=== PATIENT | male | born 1975 | race African-American/Black ===

== ENCOUNTER 2016-07-26 20:39 | Inpatient (IN) | payer OTHER ==
--- NOTE | 2016-07-26 21:09 | PDOC ---
Rapid Medical Evaluation Time Seen by Provider: 07/26/16 20:59 Medical Evaluation: 07/26/16 21:00 Initially called in, outside smoking a cigarette. I have performed a brief in-person evaluation of this patient. o The patient presents with a chief complaint of: " Mental Problems" depression and schizo effective disorder. Feels that he wants to hurt someone but wont. Denies feeling of hurting himself, Want to go to [facility], he called them and they told him that they would have a bed available tomorrow and to come to the ER today. Want to stop using percocet, and cocaine. o Pertinent physical exam findings: Awake and alert. Lungs CLear, RRR s1 s2 audible, o I have ordered the following: EKG, urine tox, cbc, CMP o The patient will proceed to the ED for further evaluation. 07/26/16 21:10
[2016-07-26 21:35] LABS: BASOPHIL 1.4 % (0-2.0); EOSINOPHIL 3.1 % (0-4.5); MCH 30.8 pg (25.7-33.7); MCHC 32.3 g/dl (32.0-35.9); MEAN CELL VOLUME 95.6 fl (80-96); NEUTROPHILS 33.1 % (42.8-82.8); PLATELET COUNT 194 K/MM3 (134-434); RDW 12.9 % (11.9-15.9); WHITE BLOOD COUNT 2.5 K/mm3 (4.0-10.0)
[2016-07-26 22:07] LABS: ALK PHOS 42 U/L (45-117); ANION GAP 7 (8-16); BILIRUBIN,TOTAL 0.5 mg/dL (0.2-1.0); CALCIUM 9.3 mg/dL (8.5-10.1); CO2 30 mmol/L (21-32); COCKROFT - GAULT 111.45; CREATININE 1.3 mg/dL (0.7-1.3); GLUCOSE,RANDOM 80 mg/dL (74-106); SGOT/AST 20 U/L (15-37); SGPT/ALT 23 U/L (12-78)
--- NOTE | 2016-07-26 23:16 | PDOC ---
History of Present Illness - General History Source: Patient Exam Limitations: No Limitations - History of Present Illness Initial Comments: 40 yo M with a PMHx of asthma, bipolar, schizoaffective disorder who presents to the ED seeking detox treatment. Patient states he needs to be medically cleared to attend a rehab center at [facility]. Patient notes his last detox was a few weeks ago at [facility]. Patient is noncompliant with his psych medications. Allergies: NKDA Surgical Hx: inguinal hernia repair Social Hx: Smoker (.5 ppd), ETOH use, cocaine, percocet <Maine Alexander - Last Filed: 07/26/16 23:16> <Yasmeen Brink - Last Filed: 07/31/16 17:37> - General Chief Complaint: Psychiatric Stated Complaint: EVALUATED Time Seen by Provider: 07/26/16 20:59 Past History <Maine Alexander - Last Filed: 07/26/16 23:16> - Past Medical History Asthma: Yes Other medical history: psyszhio affective disorder - Psycho/Social/Smoking Cessation Hx Suicidal Ideation: No Smoking History: Current every day smoker Have you smoked in the past 12 months: Yes Number of Cigarettes Smoked Daily: 10 Information on smoking cessation initiated: No Hx Alcohol Use: No Drug/Substance Use Hx: No <Yasmeen Brink - Last Filed: 07/31/16 17:37> - Past Medical History Allergies/Adverse Reactions: Allergies Allergy/AdvReac Type Severity Reaction Status Date / Time No Known Allergies Allergy Verified 07/26/16 21:07 Home Medications: Ambulatory Orders Albuterol Sulfate Inhaler - [Ventolin HFA Inhaler -] 1 inh IH TID PRN 07/26/16 Folic Acid 1 mg PO DAILY #30 tablet 07/30/16 Thiamine HCl [Vitamin B-1] 100 mg PO DAILY #30 tablet 07/30/16 Albuterol Sulfate Inhaler - [Ventolin HFA Inhaler -] 2 puff IH Q4H PRN #0 inhaler 07/31/16 Risperidone [Risperdal -] 2 mg PO BID tablet 07/31/16 Review of Systems - Review of Systems Able to Perform ROS?: Yes Comments:: CONSTITUTIONAL: Absent: fever, no chills, no fatigue EYES: Absent: visual changes ENT: Absent: ear pain, no sore throat CARDIOVASCULAR: Absent: chest pain, no palpitations RESPIRATORY: Absent: cough, no SOB GI: Absent: abdominal pain, no nausea, no vomiting, no constipation, no diarrhea GENITOURINARY: Absent: dysuria, no frequency, no hematuria MUSKULOSKELETAL: Absent: back pain, no arthralgia, no myalgia SKIN: Absent: rash NEURO: Absent: headache <Maine Alexander - Last Filed: 07/26/16 23:16> *Physical Exam - Vital Signs Last Vital Signs Temp Pulse Resp BP Pulse Ox 97.8 F 78 19 130/68 97 07/26/16 21:03 07/26/16 21:03 07/26/16 21:03 07/26/16 21:03 07/26/16 21:03 - Physical Exam Comments: GENERAL: Well-appearing, well-nourished. No apparent distress. HEENT: Normocephalic, atraumatic. PERRL, EOM intact. CARDIOVASCULAR: Normal S1, S2. Regular rate and rhythm. PULMONARY: Clear to auscultation bilaterally. ABDOMEN: Soft, non-distended, non-tender. EXTREMITIES: Normal ROM in all four extremities. No gross deformities. SKIN: Warm, dry. No rash NEUROLOGICAL: No focal neurological deficits. <Maine Alexander - Last Filed: 07/26/16 23:16> - Vital Signs Last Vital Signs Temp Pulse Resp BP Pulse Ox 97.8 F 78 19 130/68 97 07/26/16 21:03 07/26/16 21:03 07/26/16 21:03 07/26/16 21:03 07/26/16 21:03 <Yasmeen Brink - Last Filed: 07/31/16 17:37> ED Treatment Course - LABORATORY CBC & Chemistry Diagram: 07/26/16 20:44 07/26/16 20:44 - ADDITIONAL ORDERS Additional order review: Laboratory Results 07/26/16 20:44 Sodium 143 Potassium 4.0 Chloride 106 Carbon Dioxide 30 Anion Gap 7 L BUN 12 Creatinine 1.3 Creat Clearance w eGFR > 60 Random Glucose 80 Calcium 9.3 Total Bilirubin 0.5 AST 20 ALT 23 Alkaline Phosphatase 42 L Total Protein 7.0 Albumin 4.0 07/26/16 20:44 RBC 4.17 MCV 95.6 MCHC 32.3 RDW 12.9 MPV 9.0 Neutrophils % 33.1 L Lymphocytes % 45.3 H Monocytes % 17.1 H Eosinophils % 3.1 Basophils % 1.4 <Maine Alexander - Last Filed: 07/26/16 23:16> - LABORATORY CBC & Chemistry Diagram: 07/30/16 10:45 07/28/16 06:00 - ADDITIONAL ORDERS Additional order review: Laboratory Results 07/26/16 20:44 Sodium 143 Potassium 4.0 Chloride 106 Carbon Dioxide 30 Anion Gap 7 L BUN 12 Creatinine 1.3 Creat Clearance w eGFR > 60 Random Glucose 80 Calcium 9.3 Total Bilirubin 0.5 AST 20 ALT 23 Alkaline Phosphatase 42 L Total Protein 7.0 Albumin 4.0 07/26/16 20:44 RBC 4.17 MCV 95.6 MCHC 32.3 RDW 12.9 MPV 9.0 Neutrophils % 33.1 L Lymphocytes % 45.3 H Monocytes % 17.1 H Eosinophils % 3.1 Basophils % 1.4 <Yasmeen Brink - Last Filed: 07/31/16 17:37> *DC/Admit/Observation/Transfer - Attestations Scribe Attestion: Documentation prepared by Maine Alexander, acting as medical laboratory scientist for Yasmeen Brink MD/DO. <Maine Alexander - Last Filed: 07/26/16 23:16> <Yasmeen Brink - Last Filed: 07/31/16 17:37> Diagnosis at time of Disposition: Substance abuse, Neutropenia - Discharge Dispostion Condition at time of disposition: Improved - Prescriptions
[2016-07-27 02:37] LABS: URINE APPEARANCE CLEAR; URINE BILIRUBIN NEGATIVE (NEGATIVE); URINE BLOOD NEGATIVE (NEGATIVE); URINE COLOR AMBER; URINE GLUCOSE (UA) NEGATIVE (NEGATIVE); URINE KETONE NEGATIVE (NEGATIVE); URINE LEUK ESTERASE NEGATIVE (NEGATIVE); URINE NITRITE NEGATIVE (NEGATIVE); URINE PROTEIN NEGATIVE (NEGATIVE); URINE UROBILINOGEN 2.0 E.U/dl E.U./dl (0.2-1.0)
[2016-07-27 03:06] LABS: URINE MARIJUANA THC POSITIVE ng/ml (CUTOFF=50)
--- NOTE | 2016-07-27 08:50 | PDOC ---
*Physical Exam - Vital Signs Last Vital Signs Temp Pulse Resp BP Pulse Ox 97.8 F 78 19 130/68 97 07/26/16 21:03 07/26/16 21:03 07/26/16 21:03 07/26/16 21:03 07/26/16 21:03 <Jarvis Ruiz - Last Filed: 07/27/16 09:51> - Vital Signs Last Vital Signs Temp Pulse Resp BP Pulse Ox 97.8 F 78 19 130/68 97 07/26/16 21:03 07/26/16 21:03 07/26/16 21:03 07/26/16 21:03 07/26/16 21:03 <Oliverio Newsome - Last Filed: 07/27/16 10:51> ED Treatment Course - LABORATORY CBC & Chemistry Diagram: 07/26/16 20:44 07/26/16 20:44 - ADDITIONAL ORDERS Additional order review: Laboratory Results 07/27/16 07/27/16 07/26/16 02:25 02:25 20:44 Sodium 143 Potassium 4.0 Chloride 106 Carbon Dioxide 30 Anion Gap 7 L BUN 12 Creatinine 1.3 Creat Clearance w eGFR > 60 Random Glucose 80 Calcium 9.3 Total Bilirubin 0.5 AST 20 ALT 23 Alkaline Phosphatase 42 L Total Protein 7.0 Albumin 4.0 Urine Color Leelee Urine Appearance Clear Urine pH 6.0 Urine Protein Negative Urine Glucose (UA) Negative Urine Ketones Negative Urine Blood Negative Urine Nitrite Negative Urine Bilirubin Negative Urine Urobilinogen 2.0 e.u/dl Ur Leukocyte Esterase Negative Opiates Screen Negative Methadone Screen Negative Barbiturate Screen Negative Phencyclidine Screen Negative Ur Amphetamines Screen Negative MDMA (Ecstasy) Screen Negative Benzodiazepines Screen Positive Cocaine Screen Positive U Marijuana (THC) Screen Positive 07/26/16 20:44 RBC 4.17 MCV 95.6 MCHC 32.3 RDW 12.9 MPV 9.0 Neutrophils % 33.1 L Lymphocytes % 45.3 H Monocytes % 17.1 H Eosinophils % 3.1 Basophils % 1.4 <Jarvis Ruiz - Last Filed: 07/27/16 09:51> - LABORATORY CBC & Chemistry Diagram: 07/26/16 20:44 07/26/16 20:44 - ADDITIONAL ORDERS Additional order review: Laboratory Results 07/27/16 07/27/16 07/26/16 02:25 02:25 20:44 Sodium 143 Potassium 4.0 Chloride 106 Carbon Dioxide 30 Anion Gap 7 L BUN 12 Creatinine 1.3 Creat Clearance w eGFR > 60 Random Glucose 80 Calcium 9.3 Total Bilirubin 0.5 AST 20 ALT 23 Alkaline Phosphatase 42 L Total Protein 7.0 Albumin 4.0 Urine Color Leelee Urine Appearance Clear Urine pH 6.0 Urine Protein Negative Urine Glucose (UA) Negative Urine Ketones Negative Urine Blood Negative Urine Nitrite Negative Urine Bilirubin Negative Urine Urobilinogen 2.0 e.u/dl Ur Leukocyte Esterase Negative Opiates Screen Negative Methadone Screen Negative Barbiturate Screen Negative Phencyclidine Screen Negative Ur Amphetamines Screen Negative MDMA (Ecstasy) Screen Negative Benzodiazepines Screen Positive Cocaine Screen Positive U Marijuana (THC) Screen Positive 07/26/16 20:44 RBC 4.17 MCV 95.6 MCHC 32.3 RDW 12.9 MPV 9.0 Neutrophils % 33.1 L Lymphocytes % 45.3 H Monocytes % 17.1 H Eosinophils % 3.1 Basophils % 1.4 <Oliverio Newsome - Last Filed: 07/27/16 10:51> Medical Decision Making - Medical Decision Making 07/27/16 07:24 Call made to [facility] [phone], awaiting call back. 07/27/16 08:13 Call made to [facility] [phone], awaiting call back. 07/27/16 08:32 Call made to [facility] [phone], awaiting call back. 07/27/16 08:51 Call made to , awaiting call back. 07/27/16 09:29 Call made to [facility] [phone], was advised will call back. 07/27/16 09:41 Text sent to , awaiting reply. <Jarvis Ruiz - Last Filed: 07/27/16 09:51> - Medical Decision Making 07/27/16 10:49 Sign-out received from outgoing Emergency Physician Dr. Ruano Pt interviewed and examined Ancillary studies reviewed Case discussed in detail with oncoming Emergency Physician including history, physical exam and ancillary studies. CBC, BMP 07/26/16 20:44 07/26/16 20:44 Pt noted to be neutropenic with ANC ~800. However, patient has no symptoms. Case discussed with ID physician Dr. Red. Recommends obtaining holder cultures and neutropenia isolation and observation. Case discussed with case management. They will assist in case management in regards to Rehab Case discussed with Dr. Morgan (psychiatry). He is aware of the case. Case discussed in detail with admitting physician including history, physical exam and ancillary studies. Admitting physician has assumed care for the patient, will follow all pending diagnostics and will complete the evaluation and treatment. <Oliverio Newsome - Last Filed: 07/27/16 10:51> *DC/Admit/Observation/Transfer <Jarvis Ruiz - Last Filed: 07/27/16 09:51> - Discharge Dispostion Admit: Yes <Oliverio Newsome - Last Filed: 07/27/16 10:51> Diagnosis at time of Disposition: Substance abuse Neutropenia Qualifiers: Neutropenia type: unspecified Qualified Code(s): D70.9 - Neutropenia, unspecified - Discharge Dispostion Condition at time of disposition: Good
--- NOTE | 2016-07-27 10:48 | HP ---
CHIEF COMPLAINT: "I want to go to detox." PCP: HISTORY OF PRESENT ILLNESS: This is a 40 yo man with PMH asthma, pancreatitis, schizoaffective and bipolar d/o (self d/c'd medications ~1 year ago) and polysubstance abuse who presents for medical clearance for [facility] facility. Medical w/u revealed WBC 2500 and ANC 828. He denies fevers, chills or infectious symptoms. Last ETOH and cocaine on 07/26 in the AM prior to presentation to ED. Currently no beds available at [facility]. ER course was notable for: (1) WBC 2500 with ANC 828 (2) Utox positive for THC, cocaine and benzos Recent Travel: denies PAST MEDICAL HISTORY: see HPI PAST SURGICAL HISTORY: denies Social History: Smoking: current 0.5 pack daily smoker with 7 pack years Alcohol: daily 4 beers and 1 pint Drugs: 1gram cocaine daily, daily Percocet Family History: non-contributory Allergies No Known Allergies Allergy (Verified 07/26/16 21:07) HOME MEDICATIONS: Home Medications 3 Medication Instructions Recorded Albuterol Sulfate Inhaler - 1 inh IH TID PRN 07/26/16 [Ventolin HFA Inhaler -] REVIEW OF SYSTEMS CONSTITUTIONAL: Absent: fever, chills, diaphoresis, generalized weakness, malaise, loss of appetite, weight change HEENT: Absent: rhinorrhea, nasal congestion, throat pain, throat swelling, difficulty swallowing, mouth swelling, ear pain, eye pain, visual changes CARDIOVASCULAR: Absent: chest pain, syncope, palpitations, irregular heart rate, lightheadedness , peripheral edema RESPIRATORY: Absent: cough, shortness of breath, dyspnea with exertion, orthopnea, wheezing, stridor, hemoptysis GASTROINTESTINAL: Absent: abdominal pain, abdominal distension, nausea, vomiting, diarrhea, constipation, melena, hematochezia GENITOURINARY: Absent: dysuria, frequency, urgency, hesitancy, hematuria, flank pain, genital pain MUSCULOSKELETAL: Absent: myalgia, arthralgia, joint swelling, back pain, neck pain SKIN: Absent: rash, itching, pallor HEMATOLOGIC/IMMUNOLOGIC: Absent: easy bleeding, easy bruising, lymphadenopathy, frequent infections ENDOCRINE: Absent: unexplained weight gain, unexplained weight loss, heat intolerance, cold intolerance NEUROLOGIC: Absent: headache, focal weakness or paresthesias, dizziness, unsteady gait, seizure, mental status changes, bladder or bowel incontinence PSYCHIATRIC: Absent: anxiety, depression, suicidal, hallucinations. Patient expresses wish to do "bad things" to unspecified "people" PHYSICAL EXAMINATION Vital Signs - 24 hr 3 07/26/16 07/27/16 21:03 07:40 Temperature 97.8 F 97.8 F Pulse Rate 78 Pulse Rate [ 62 Apical] Respiratory 19 16 Rate Blood Pressure 130/68 Blood Pressure 104/53 [Left Arm] O2 Sat by Pulse 97 100 Oximetry (%) GENERAL: Awake, alert, and fully oriented, in no acute distress. HEAD: Normal with no signs of trauma. EYES: Pupils equal, round and reactive to light, extraocular movements intact, sclera anicteric, conjunctiva clear. No lid lag. EARS, NOSE, THROAT: Ears normal, nares patent, oropharynx clear without exudates. Moist mucous membranes. NECK: Normal range of motion, supple without lymphadenopathy, JVD, or masses. LUNGS: Breath sounds equal, clear to auscultation bilaterally. No wheezes, and no crackles. No accessory muscle use. HEART: Regular rate and rhythm, normal S1 and S2 without murmur, rub or gallop. ABDOMEN: Soft, nontender, not distended, normoactive bowel sounds, no guarding, no rebound, no masses. No hepatomegaly or splenomegaly. MUSCULOSKELETAL: Normal range of motion at all joints. No bony deformities or tenderness. No CVA tenderness. UPPER EXTREMITIES: 2+ pulses, warm, well-perfused. No cyanosis. No clubbing. No peripheral edema. LOWER EXTREMITIES: 2+ pulses, warm, well-perfused. No calf tenderness. No peripheral edema. NEUROLOGICAL: Cranial nerves II-XII intact. Normal speech. Normal gait. Tremulous with extended hands. No tongue fasciculation noted. PSYCHIATRIC: Cooperative. Good eye contact. Appropriate mood and affect. SKIN: Warm, dry, normal turgor, no rashes or lesions noted, normal capillary refill. Laboratory Results - last 24 hr 3 07/26/16 07/26/16 07/27/16 20:44 20:44 02:25 WBC 2.5 L RBC 4.17 Hgb 12.9 Hct 39.8 MCV 95.6 MCHC 32.3 RDW 12.9 Plt Count 194 MPV 9.0 Neutrophils % 33.1 L Lymphocytes % 45.3 H Monocytes % 17.1 H Eosinophils % 3.1 Basophils % 1.4 Sodium 143 Potassium 4.0 Chloride 106 Carbon Dioxide 30 Anion Gap 7 L BUN 12 Creatinine 1.3 Creat Clearance w eGFR > 60 Random Glucose 80 Calcium 9.3 Total Bilirubin 0.5 AST 20 ALT 23 Alkaline Phosphatase 42 L Total Protein 7.0 Albumin 4.0 Urine Color Leelee Urine Appearance Clear Urine pH 6.0 Urine Protein Negative Urine Glucose (UA) Negative Urine Ketones Negative Urine Blood Negative Urine Nitrite Negative Urine Bilirubin Negative Urine Urobilinogen 2.0 e.u/dl Ur Leukocyte Esterase Negative Opiates Screen Methadone Screen Barbiturate Screen Phencyclidine Screen Ur Amphetamines Screen MDMA (Ecstasy) Screen Benzodiazepines Screen Cocaine Screen U Marijuana (THC) Screen 3 07/27/16 02:25 WBC RBC Hgb Hct MCV MCHC RDW Plt Count MPV Neutrophils % Lymphocytes % Monocytes % Eosinophils % Basophils % Sodium Potassium Chloride Carbon Dioxide Anion Gap BUN Creatinine Creat Clearance w eGFR Random Glucose Calcium Total Bilirubin AST ALT Alkaline Phosphatase Total Protein Albumin Urine Color Urine Appearance Urine pH Urine Protein Urine Glucose (UA) Urine Ketones Urine Blood Urine Nitrite Urine Bilirubin Urine Urobilinogen Ur Leukocyte Esterase Opiates Screen Negative Methadone Screen Negative Barbiturate Screen Negative Phencyclidine Screen Negative Ur Amphetamines Screen Negative MDMA (Ecstasy) Screen Negative Benzodiazepines Screen Positive Cocaine Screen Positive U Marijuana (THC) Screen Positive ASSESSMENT/PLAN: A: 40 yo man with uncomplicated withdrawal and neutropenia. Currently no infectious symptoms. ANC currently 475. CIWA-5. P: 1. Neutropenia NCI risk category- 4 - trend WBC's - closely monitor temperature - blood and urine cx pending - low threshold for abx therapy - ID Bobde consult 2. ETOH withdrawal - Librium taper - Serial CIWA - Douglas consult - Detox when neutropenia resolves 3. Schizoaffective d/o - [place] following 4. Bipolar d/o - [place] following 5. Asthma - well controlled Dispo- requires observation for acute medical condition. transfer to detox when neutropenia resolves Code Status- FULL CODE Visit type - Emergency Visit Emergency Visit: Yes Care time: The patient presented to the Emergency Department on the above date and was hospitalized for further evaluation of their emergent condition. - New Patient This patient is new to me today: Yes Date on this admission: 07/27/16 - Critical Care Critical Care patient: No
[2016-07-27 11:25] LABS: BASOPHIL 1.3 % (0-2.0); EOSINOPHIL 6.1 % (0-4.5); MCH 31.7 pg (25.7-33.7); MCHC 33.3 g/dl (32.0-35.9); MEAN CELL VOLUME 95.1 fl (80-96); MEAN PLT VOLUME 9.1 fl (7.5-11.1); PLATELET COUNT 174 K/MM3 (134-434); RDW 12.5 % (11.9-15.9); WHITE BLOOD COUNT 2.5 K/mm3 (4.0-10.0)
[2016-07-27] MEDS ORDERED: chlordiazePOXIDE HCL 25 MG CAPSULE PO PRN (13:40)
[2016-07-27] MEDS ORDERED: chlordiazePOXIDE HCL 25 MG CAPSULE PO ONE (13:41)
[2016-07-27] MEDS ORDERED: chlordiazePOXIDE HCL 25 MG CAPSULE ONE ×2 (15:12→17:56)
--- NOTE | 2016-07-27 17:20 | CONSULT ---
Consult Consult Specialty:: infectious diseases Reason for Consultation:: neutropenia - History of Present Illness History of Present Illness: This is a 40 yo man with PMH asthma, pancreatitis, schizoaffective and bipolar d /o and polysubstance abuse who presents for medical clearance for [facility] facility. Patient on admission was found to have drugs in the system as from utox. Also when the patient was worked up found to ahve low platelets and low wbc count patient denies any fever or any other symptoms . Last ETOH and cocaine on 07/26 in the AM prior to presentation to ED. currently sleepy but otherwise looks stable - History Source History Provided By: Medical Record Limitations to Obtaining History: Clinical Condition - Alcohol/Substance Use Hx Alcohol Use: No - Smoking History Smoking history: Current every day smoker Have you smoked in the past 12 months: Yes Aproximately how many cigarettes per day: 10 Home Medications - Allergies Allergies/Adverse Reactions: Allergies Allergy/AdvReac Type Severity Reaction Status Date / Time No Known Allergies Allergy Verified 07/26/16 21:07 - Home Medications Home Medications: Ambulatory Orders Albuterol Sulfate Inhaler - [Ventolin HFA Inhaler -] 1 inh IH TID PRN 07/26/16 Review of Systems - Review of Systems Constitutional: reports: No Symptoms Eyes: reports: No Symptoms HENT: reports: No Symptoms Neck: reports: No Symptoms Cardiovascular: reports: No Symptoms Respiratory: reports: No Symptoms Gastrointestinal: reports: No Symptoms Genitourinary: reports: No Symptoms Integumentary: reports: No Symptoms Neurological: reports: No Symptoms Endocrine: reports: No Symptoms Hematology/Lymphatic: reports: No Symptoms Psychiatric: reports: No Symptoms Physical Exam Vital Signs: Vital Signs Temperature 98.1 F 07/27/16 15:57 Pulse Rate 64 07/27/16 15:57 Respiratory Rate 20 07/27/16 15:57 Blood Pressure 107/48 07/27/16 15:57 O2 Sat by Pulse Oximetry (%) 94 L 07/27/16 15:57 Constitutional: Yes: No Distress, Calm Eyes: Yes: Conjunctiva Clear Cardiovascular: Yes: Regular Rate and Rhythm Respiratory: Yes: Regular, CTA Bilaterally Gastrointestinal: Yes: Normal Bowel Sounds, Soft Musculoskeletal: Yes: WNL Extremities: Yes: WNL Neurological: Yes: Alert Psychiatric: Yes: Alert Labs: CBC, BMP 07/27/16 11:09 Assessment/Plan 1. Neutropenia 2. ETOH withdrawal 3. Schizoaffective 4. Bipolar d/o 5. Asthma plan no abx at this time patient stable if continues to remain stable patient can be txed
[2016-07-27] MEDS: chlordiazePOXIDE HCL 25 MG CAPSULE PO SCH ×2 (17:55→22:36)
[2016-07-28 00:56] VITALS: BMI 29.2
[2016-07-28] MEDS: chlordiazePOXIDE HCL 25 MG CAPSULE PO SCH ×4 (06:18→23:17)
[2016-07-28 07:32] LABS: MCH 31.7 pg (25.7-33.7); MCHC 33.4 g/dl (32.0-35.9); MEAN PLT VOLUME 9.5 fl (7.5-11.1); PLATELET COUNT 171 K/MM3 (134-434); RDW 12.5 % (11.9-15.9); WHITE BLOOD COUNT 2.5 K/mm3 (4.0-10.0)
[2016-07-28 07:54] LABS: CALCIUM 8.4 mg/dL (8.5-10.1); COCKROFT - GAULT 151.57
[2016-07-28 08:22] LABS: PLATELET ESTIMATE ADEQUATE (NORMAL)
--- NOTE | 2016-07-28 12:40 | EKG ---
Test Reason : Blood Pressure : / mmHG Vent. Rate : 068 BPM Atrial Rate : 068 BPM P-R Int : 152 ms QRS Dur : 100 ms QT Int : 392 ms P-R-T Axes : 033 022 026 degrees QTc Int : 416 ms SINUS RHYTHM WITH PREMATURE ATRIAL COMPLEXES WITH ABERRANT CONDUCTION OTHERWISE NORMAL ECG NO PREVIOUS ECGS AVAILABLE Confirmed by SUNNY NAVA, ATTILA ([id number]) on 07/28/2016 12:39:41 PM Referred By: HEATHER Confirmed By:ATTILA CORREA MD
--- NOTE | 2016-07-28 13:32 | PN ---
Progress Note, Physician History of Present Illness: stable continues to be afebrile - Current Medication List Current Medications: Active Medications Chlordiazepoxide HCl (Librium -) 25 mg PO Q4H PRN PRN Reason: WITHDRAWAL(CONT SUBST) Stop: 07/30/16 13:39 Chlordiazepoxide HCl (Librium -) 25 mg PO [id number] BYRON Stop: 07/29/16 11:01 Chlordiazepoxide HCl (Librium -) 15 mg PO [id number] BYRON Stop: 07/30/16 11:01 - Objective Vital Signs: Vital Signs Temperature 97.4 F L 07/28/16 11:00 Pulse Rate 61 07/28/16 11:00 Respiratory Rate 16 07/28/16 11:00 Blood Pressure 121/63 07/28/16 11:00 O2 Sat by Pulse Oximetry (%) 100 07/27/16 17:51 Constitutional: Yes: No Distress, Calm Cardiovascular: Yes: Regular Rate and Rhythm Respiratory: Yes: Regular, CTA Bilaterally Gastrointestinal: Yes: Normal Bowel Sounds, Soft Musculoskeletal: Yes: WNL Extremities: Yes: WNL Neurological: Yes: Alert, Oriented Assessment/Plan 1. Neutropenia 2. ETOH withdrawal 3. Schizoaffective 4. Bipolar d/o 5. Asthma plan no abx at this time patient stable if continues to remain stable by tomorrow i think the drugs will be out of his system patient stable to be txed continues to be afebrile and stable
--- NOTE | 2016-07-28 13:59 | PN ---
Progress Note (short form) - Note Progress Note: Subjective: the patient was seen and examined at the bedside, he has tremors on extension. He is eating lunch and states he would like to be left alone. Current Medications Generic Name Dose Route Start Last Admin Trade Name Freq PRN Reason Stop Dose Admin Chlordiazepoxide HCl 25 mg 07/27/16 13:40 Librium - PO 07/30/16 13:39 Q4H PRN WITHDRAWAL(CONT SUBST) Chlordiazepoxide HCl 25 mg 07/28/16 17:00 Librium - PO 07/29/16 11:01 [id number] BYRON Chlordiazepoxide HCl 15 mg 07/29/16 17:00 Librium - PO 07/30/16 11:01 [id number] BYRON Objective: Vital Signs Period Temp Pulse Resp BP Sys/Galeana Pulse Ox Last 24 Hr 97.4 F-98.1 F 60-71 10-20 107-135/48-76 94-100 Physical Exam: Patient refused CBCD WBC 2.5 K/mm3 (4.0-10.0) L 07/28/16 06:00 RBC 3.93 M/mm3 (4.00-5.60) L 07/28/16 06:00 Hgb 12.5 GM/dL (11.7-16.9) 07/28/16 06:00 Hct 37.4 % (35.4-49) 07/28/16 06:00 MCV 95.0 fl (80-96) 07/28/16 06:00 MCHC 33.4 g/dl (32.0-35.9) 07/28/16 06:00 RDW 12.5 % (11.9-15.9) 07/28/16 06:00 Plt Count 171 K/MM3 (134-434) 07/28/16 06:00 MPV 9.5 fl (7.5-11.1) 07/28/16 06:00 CMP Sodium 142 mmol/L (136-145) 07/28/16 06:00 Potassium 4.1 mmol/L (3.5-5.1) 07/28/16 06:00 Chloride 106 mmol/L (98-107) 07/28/16 06:00 Carbon Dioxide 28 mmol/L (21-32) 07/28/16 06:00 Anion Gap 8 (8-16) 07/28/16 06:00 BUN 14 mg/dL (7-18) 07/28/16 06:00 Creatinine 1.0 mg/dL (0.7-1.3) D 07/28/16 06:00 Creat Clearance w eGFR > 60 (>60) 07/26/16 20:44 Random Glucose 90 mg/dL (74-106) 07/28/16 06:00 Calcium 8.4 mg/dL (8.5-10.1) L 07/28/16 06:00 Total Bilirubin 0.5 mg/dL (0.2-1.0) 07/26/16 20:44 AST 20 U/L (15-37) 07/26/16 20:44 ALT 23 U/L (12-78) 07/26/16 20:44 Alkaline Phosphatase 42 U/L (45-117) L 07/26/16 20:44 Total Protein 7.0 g/dl (6.4-8.2) 07/26/16 20:44 Albumin 4.0 g/dl (3.4-5.0) 07/26/16 20:44 Microbiology 07/27/16 11:09 Blood - Peripheral Venous Blood Culture - Preliminary NO GROWTH OBTAINED AFTER 24 HOURS, INCUBATION TO CONTINUE FOR 4 DAYS. 07/27/16 11:05 Blood - Peripheral Venous Blood Culture - Preliminary NO GROWTH OBTAINED AFTER 24 HOURS, INCUBATION TO CONTINUE FOR 4 DAYS. Assessment: this is a 40 year old male with PMHx of asthma, schizoaffective disorder, asthma, ETOH use who presented to the ED seeking detox treatment Plan: 1) ID: Neutropenia - ANC 325 today - No current infectious symptoms - UA negative - Blood cultures with NGTD - Continue to observe off abx - Appreciate ID consult 2) Psych: ETOH abuse - Continue Librium taper - F/u detox consult Schizoaffective disorder, bipolar disorder - Not on home medications - F/u psych consult 3) Pulmonary: Asthma - Well controlled - Albuterol prn 4) F/E/N: - Neutropenic diet - Monitor electrolytes 5) Prophylaxis: - Lovenox 40mg sq daily - OOB ambulating 6) Dispo: - Requires continued inpatient care CODE STATUS: FULL CODE Visit type - Emergency Visit Emergency Visit: Yes ED Registration Date: 07/28/16 Care time: The patient presented to the Emergency Department on the above date and was hospitalized for further evaluation of their emergent condition. - New Patient This patient is new to me today: Yes Date on this admission: 07/28/16 - Critical Care Critical Care patient: No
[2016-07-28] MEDS ORDERED: ALBUTEROL SO4 6.7 GM HFA INHALER IH PRN (14:04)
[2016-07-29] MEDS: chlordiazePOXIDE HCL 25 MG CAPSULE PO SCH ×2 (05:59→11:15)
[2016-07-29 06:59] LABS: BASOPHIL 1.2 % (0-2.0); EOSINOPHIL 5.8 % (0-4.5); MCH 31.4 pg (25.7-33.7); MCHC 33.1 g/dl (32.0-35.9); MEAN CELL VOLUME 94.9 fl (80-96); MEAN PLT VOLUME 9.8 fl (7.5-11.1); NEUTROPHILS 22.4 % (42.8-82.8); PLATELET COUNT 205 K/MM3 (134-434); RDW 12.7 % (11.9-15.9); WHITE BLOOD COUNT 2.6 K/mm3 (4.0-10.0)
--- NOTE | 2016-07-29 08:32 | CONSULT ---
Consult Detox [facility] Reason for Current Admission/Consult: Alcohol detox Referred by:: Rey Kumar NP - History History of Present Illness: 40 y/o man was first seen by me while in the ED on 07/27/26.At that time he was very drowsy and unable to give hx. He's currently on the librium detox protocol and tolerating it well. Pt. denies previous detox,his alcohol use started as a teenager. - History Source History Provided By: Patient, Medical Record - Alcohol/Substance Use Hx Alcohol Use: No - Current Drug/Alcohol Use Alcohol Route: Oral Frequency: Daily Amount used: Cognac 1 pint, Beer < 1(6apck) Age of first use: 16 Date of Last Use: 07/26/16 - Significant Medical Findings: Laboratory Last Values WBC 2.6 K/mm3 (4.0-10.0) L 07/29/16 05:35 RBC 4.04 M/mm3 (4.00-5.60) 07/29/16 05:35 Hgb 12.7 GM/dL (11.7-16.9) 07/29/16 05:35 Hct 38.4 % (35.4-49) 07/29/16 05:35 MCV 94.9 fl (80-96) 07/29/16 05:35 MCHC 33.1 g/dl (32.0-35.9) 07/29/16 05:35 RDW 12.7 % (11.9-15.9) 07/29/16 05:35 Plt Count 205 K/MM3 (134-434) 07/29/16 05:35 MPV 9.8 fl (7.5-11.1) 07/29/16 05:35 Neutrophils % 22.4 % (42.8-82.8) L D 07/29/16 05:35 Lymphocytes % 57.9 % (8-40) H 07/29/16 05:35 Monocytes % 12.7 % (3.8-10.2) H 07/29/16 05:35 Eosinophils % 5.8 % (0-4.5) H 07/29/16 05:35 Basophils % 1.2 % (0-2.0) 07/29/16 05:35 Differential Comment Manual diff done 07/28/16 06:00 Reactive Lymphocytes 2 % (0-80) 07/28/16 06:00 Platelet Estimate Adequate (NORMAL) 07/28/16 06:00 Sodium 142 mmol/L (136-145) 07/28/16 06:00 Potassium 4.1 mmol/L (3.5-5.1) 07/28/16 06:00 Chloride 106 mmol/L (98-107) 07/28/16 06:00 Carbon Dioxide 28 mmol/L (21-32) 07/28/16 06:00 Anion Gap 8 (8-16) 07/28/16 06:00 BUN 14 mg/dL (7-18) 07/28/16 06:00 Creatinine 1.0 mg/dL (0.7-1.3) D 07/28/16 06:00 Creat Clearance w eGFR > 60 (>60) 07/26/16 20:44 Random Glucose 90 mg/dL (74-106) 07/28/16 06:00 Calcium 8.4 mg/dL (8.5-10.1) L 07/28/16 06:00 Total Bilirubin 0.5 mg/dL (0.2-1.0) 07/26/16 20:44 AST 20 U/L (15-37) 07/26/16 20:44 ALT 23 U/L (12-78) 07/26/16 20:44 Alkaline Phosphatase 42 U/L (45-117) L 07/26/16 20:44 Total Protein 7.0 g/dl (6.4-8.2) 07/26/16 20:44 Albumin 4.0 g/dl (3.4-5.0) 07/26/16 20:44 Urine Color Leelee 07/27/16 02:25 Urine Appearance Clear 07/27/16 02:25 Urine pH 6.0 (5.0-8.0) 07/27/16 02:25 Ur Specific [place] 1.020 (1.005-1.025) 07/27/16 02:25 Urine Protein Negative (NEGATIVE) 07/27/16 02:25 Urine Glucose (UA) Negative (NEGATIVE) 07/27/16 02:25 Urine Ketones Negative (NEGATIVE) 07/27/16 02:25 Urine Blood Negative (NEGATIVE) 07/27/16 02:25 Urine Nitrite Negative (NEGATIVE) 07/27/16 02:25 Urine Bilirubin Negative (NEGATIVE) 07/27/16 02:25 Urine Urobilinogen 2.0 e.u/dl E.U./dl (0.2-1.0) 07/27/16 02:25 Ur Leukocyte Esterase Negative (NEGATIVE) 07/27/16 02:25 Opiates Screen Negative ng/ml (FHYIFW=042) 07/27/16 02:25 Methadone Screen Negative ng/ml (RXZOWF=247) 07/27/16 02:25 Barbiturate Screen Negative ng/ml (GDMKCP=229) 07/27/16 02:25 Phencyclidine Screen Negative ng/ml (CUTOFF=25) 07/27/16 02:25 Ur Amphetamines Screen Negative ng/ml (RRAQCJ=264) 07/27/16 02:25 MDMA (Ecstasy) Screen Negative ng/ml (WIHBSJ=782) 07/27/16 02:25 Benzodiazepines Screen Positive ng/ml (XBVOCC=724) 07/27/16 02:25 Cocaine Screen Positive ng/ml (UWHVZG=860) 07/27/16 02:25 U Marijuana (THC) Screen Positive ng/ml (CUTOFF=50) 07/27/16 02:25 labs noted CIWA Score - CIWA Score Nausea/Vomitin-No Nausea/No Vomiting Muscle Tremors: 3 Anxiety: 3 Agitation: 2 Paroxysmal Sweats: 2 Orientation: 0-Oriented Tacttile Disturbances: 0-None Auditory Disturbances: 0-None Visual Disturbances: 0-None Headache: 0-None Present CIWA-Ar Total Score: 10 Assessment Plan - Diagnosis (1) Alcohol dependence with uncomplicated withdrawal Status: Acute (2) Cocaine dependence, uncomplicated Status: Acute - Plan Plan: Complete detox and refer to [facility] rehab - Medication Detox Regimen/Protocol: Edmar
[2016-07-29] MEDS: ENOXAPARIN NA (PORCINE) 40 MG/0.4 ML DISP.SYRIN SQ SCH (11:15)
--- NOTE | 2016-07-29 13:18 | PN ---
Progress Note, Physician History of Present Illness: eating lunch does not ant to be examined clinically looks very good no issues detox note noted - Current Medication List Current Medications: Active Medications Albuterol Sulfate (Ventolin Hfa Inhaler -) 2 puff IH Q4H PRN PRN Reason: SHORT OF BREATH/WHEEZING Chlordiazepoxide HCl (Librium -) 25 mg PO Q4H PRN PRN Reason: WITHDRAWAL(CONT SUBST) Stop: 07/30/16 13:39 Chlordiazepoxide HCl (Librium -) 15 mg PO [id number] BYRON Stop: 07/30/16 11:01 Enoxaparin Sodium (Lovenox -) 40 mg SQ DAILY BYRON Last Admin: 07/29/16 11:15 Dose: Not Given - Objective Vital Signs: Vital Signs Temperature 97.7 F 07/29/16 06:00 Pulse Rate 20 L 07/29/16 06:00 Respiratory Rate 20 07/29/16 06:00 Blood Pressure 131/57 07/29/16 06:00 O2 Sat by Pulse Oximetry (%) 95 07/29/16 10:00 Labs: CBC, BMP 07/29/16 05:35 Assessment/Plan 1. Neutropenia 2. ETOH withdrawal 3. Schizoaffective 4. Bipolar d/o 5. Asthma - Diagnosis (1) Alcohol dependence with uncomplicated withdrawal Status: Acute (2) Cocaine dependence, uncomplicated Status: Acute plan no abx at this time patient stable continue as per detox plan can go to rehab
--- NOTE | 2016-07-29 14:10 | PN ---
Progress Note (short form) - Note Progress Note: Subjective: the patient was seen and examined at the bedside, he denies any issues Current Medications Generic Name Dose Route Start Last Admin Trade Name Freq PRN Reason Stop Dose Admin Albuterol Sulfate 2 puff 07/28/16 14:04 Ventolin Hfa Inhaler - IH Q4H PRN SHORT OF BREATH/WHEEZING Chlordiazepoxide HCl 25 mg 07/27/16 13:40 Librium - PO 07/30/16 13:39 Q4H PRN WITHDRAWAL(CONT SUBST) Chlordiazepoxide HCl 15 mg 07/29/16 17:00 Librium - PO 07/30/16 11:01 [id number] BYRON Enoxaparin Sodium 40 mg 07/29/16 10:00 07/29/16 11:15 Lovenox - SQ Not Given DAILY BYRON Objective: Vital Signs Period Temp Pulse Resp BP Sys/Galeana Pulse Ox Last 24 Hr 97.7 F-98.7 F 20-66 18-20 110-132/56-80 95-95 Physical Exam: Patient refused CBCD WBC 2.6 K/mm3 (4.0-10.0) L 07/29/16 05:35 RBC 4.04 M/mm3 (4.00-5.60) 07/29/16 05:35 Hgb 12.7 GM/dL (11.7-16.9) 07/29/16 05:35 Hct 38.4 % (35.4-49) 07/29/16 05:35 MCV 94.9 fl (80-96) 07/29/16 05:35 MCHC 33.1 g/dl (32.0-35.9) 07/29/16 05:35 RDW 12.7 % (11.9-15.9) 07/29/16 05:35 Plt Count 205 K/MM3 (134-434) 07/29/16 05:35 MPV 9.8 fl (7.5-11.1) 07/29/16 05:35 CMP Sodium 142 mmol/L (136-145) 07/28/16 06:00 Potassium 4.1 mmol/L (3.5-5.1) 07/28/16 06:00 Chloride 106 mmol/L (98-107) 07/28/16 06:00 Carbon Dioxide 28 mmol/L (21-32) 07/28/16 06:00 Anion Gap 8 (8-16) 07/28/16 06:00 BUN 14 mg/dL (7-18) 07/28/16 06:00 Creatinine 1.0 mg/dL (0.7-1.3) D 07/28/16 06:00 Creat Clearance w eGFR > 60 (>60) 07/26/16 20:44 Random Glucose 90 mg/dL (74-106) 07/28/16 06:00 Calcium 8.4 mg/dL (8.5-10.1) L 07/28/16 06:00 Total Bilirubin 0.5 mg/dL (0.2-1.0) 07/26/16 20:44 AST 20 U/L (15-37) 07/26/16 20:44 ALT 23 U/L (12-78) 07/26/16 20:44 Alkaline Phosphatase 42 U/L (45-117) L 07/26/16 20:44 Total Protein 7.0 g/dl (6.4-8.2) 07/26/16 20:44 Albumin 4.0 g/dl (3.4-5.0) 07/26/16 20:44 Microbiology 07/27/16 11:09 Blood - Peripheral Venous Blood Culture - Preliminary NO GROWTH OBTAINED AFTER 24 HOURS, INCUBATION TO CONTINUE FOR 4 DAYS. 07/27/16 11:05 Blood - Peripheral Venous Blood Culture - Preliminary NO GROWTH OBTAINED AFTER 24 HOURS, INCUBATION TO CONTINUE FOR 4 DAYS. Assessment: this is a 40 year old male with PMHx of asthma, schizoaffective disorder, asthma, ETOH use who presented to the ED seeking detox treatment Plan: 1) ID: Neutropenia - Infectious vs. benign ethnic neutropenia vs. drug induced - No current infectious symptoms - UA negative - Blood cultures with NGTD - Continue to observe off abx - Appreciate ID consult 2) Psych: ETOH abuse - Continue Librium taper - Appreciate detox consult Schizoaffective disorder, bipolar disorder - Not on home medications - F/u psych consult 3) Pulmonary: Asthma - Well controlled - Albuterol prn 4) F/E/N: - Neutropenic diet - Monitor electrolytes 5) Prophylaxis: - Lovenox 40mg sq daily - OOB ambulating 6) Dispo: - Can be discharged to [facility] tomorrow after last dose of Librium, discussed with case management CODE STATUS: FULL CODE
[2016-07-29] MEDS: chlordiazePOXIDE 5 MG CAPSULE PO SCH ×2 (18:10→23:40)
[2016-07-30] MEDS: chlordiazePOXIDE 5 MG CAPSULE PO SCH ×2 (05:57→11:34)
--- NOTE | 2016-07-30 07:41 | DS ---
Physical Examination Vital Signs: Vital Signs Temperature 98.3 F 07/30/16 05:49 Pulse Rate 58 L 07/30/16 05:49 Respiratory Rate 18 07/30/16 05:49 Blood Pressure 119/55 07/30/16 05:49 O2 Sat by Pulse Oximetry (%) 99 07/29/16 22:00 Labs: CBC, BMP 07/29/16 05:35 Discharge Summary Reason For Visit: SUBSTANCE ABUSE,NEUTROPENIA Current Active Problems Alcohol dependence with uncomplicated withdrawal (Acute) Cocaine dependence, uncomplicated (Acute) Neutropenia (Acute) Substance abuse (Acute) Condition: Improved - Instructions Diet, Activity, Other Instructions: Please return to the ED with new, persistent, or worsening symptoms. Please follow-up with you primary care provider as specified. Referrals: River Munguia MD [Staff Physician] - (Please follow-up with your primary care provider within 1 week. Please have your complete blood count checked ( blood work) at that time to assess what your absolute neutraphil count is.) Disposition: HOME - Home Medications Comprehensive Discharge Medication List: Ambulatory Orders Albuterol Sulfate Inhaler - [Ventolin HFA Inhaler -] 1 inh IH TID PRN 07/26/16 Folic Acid 1 mg PO DAILY #30 tablet 07/30/16 Thiamine HCl [Vitamin B-1] 100 mg PO DAILY #30 tablet 07/30/16
--- NOTE | 2016-07-30 10:13 | PN ---
Progress Note (short form) - Note Progress Note: Subjective: the patient was seen and examined at the bedside, he reports having a bowel movement with bright red blood this AM (he did not show anyone the stool ). He reports this happened two years ago and that he was diagnosed with pancreatitis at that time. He denies any abdominal pain, nausea, vomiting. Current Medications Generic Name Dose Route Start Last Admin Trade Name Freq PRN Reason Stop Dose Admin Albuterol Sulfate 2 puff 07/28/16 14:04 Ventolin Hfa Inhaler - IH Q4H PRN SHORT OF BREATH/WHEEZING Chlordiazepoxide HCl 25 mg 07/27/16 13:40 Librium - PO 07/30/16 13:39 Q4H PRN WITHDRAWAL(CONT SUBST) Chlordiazepoxide HCl 15 mg 07/29/16 17:00 07/30/16 05:57 Librium - PO 07/30/16 11:01 15 mg [id number] BYRON Administration Enoxaparin Sodium 40 mg 07/29/16 10:00 07/29/16 11:15 Lovenox - SQ Not Given DAILY BYRON Objective: Vital Signs Period Temp Pulse Resp BP Sys/Galeana Pulse Ox Last 24 Hr 97.6 F-98.3 F 58-73 18-20 103-142/55-81 99 Physical Exam: Rectal exam with multiple external hemorrhoids and internal hemorrhoids. Bedside guiac negative for blood CBCD WBC 2.6 K/mm3 (4.0-10.0) L 07/29/16 05:35 RBC 4.04 M/mm3 (4.00-5.60) 07/29/16 05:35 Hgb 12.7 GM/dL (11.7-16.9) 07/29/16 05:35 Hct 38.4 % (35.4-49) 07/29/16 05:35 MCV 94.9 fl (80-96) 07/29/16 05:35 MCHC 33.1 g/dl (32.0-35.9) 07/29/16 05:35 RDW 12.7 % (11.9-15.9) 07/29/16 05:35 Plt Count 205 K/MM3 (134-434) 07/29/16 05:35 MPV 9.8 fl (7.5-11.1) 07/29/16 05:35 CMP Sodium 142 mmol/L (136-145) 07/28/16 06:00 Potassium 4.1 mmol/L (3.5-5.1) 07/28/16 06:00 Chloride 106 mmol/L (98-107) 07/28/16 06:00 Carbon Dioxide 28 mmol/L (21-32) 07/28/16 06:00 Anion Gap 8 (8-16) 07/28/16 06:00 BUN 14 mg/dL (7-18) 07/28/16 06:00 Creatinine 1.0 mg/dL (0.7-1.3) D 07/28/16 06:00 Creat Clearance w eGFR > 60 (>60) 07/26/16 20:44 Random Glucose 90 mg/dL (74-106) 07/28/16 06:00 Calcium 8.4 mg/dL (8.5-10.1) L 07/28/16 06:00 Total Bilirubin 0.5 mg/dL (0.2-1.0) 07/26/16 20:44 AST 20 U/L (15-37) 07/26/16 20:44 ALT 23 U/L (12-78) 07/26/16 20:44 Alkaline Phosphatase 42 U/L (45-117) L 07/26/16 20:44 Total Protein 7.0 g/dl (6.4-8.2) 07/26/16 20:44 Albumin 4.0 g/dl (3.4-5.0) 07/26/16 20:44 Microbiology 07/27/16 11:09 Blood - Peripheral Venous Blood Culture - Preliminary NO GROWTH OBTAINED AFTER 48 HOURS, INCUBATION TO CONTINUE FOR 3 DAYS. 07/27/16 11:05 Blood - Peripheral Venous Blood Culture - Preliminary NO GROWTH OBTAINED AFTER 48 HOURS, INCUBATION TO CONTINUE FOR 3 DAYS. Assessment: this is a 40 year old male with PMHx of asthma, schizoaffective disorder, asthma, ETOH use who presented to the ED seeking detox treatment Plan: 1) ID: Neutropenia - Infectious vs. benign ethnic neutropenia vs. drug induced - No current infectious symptoms - UA negative - Blood cultures with NGTD - Continue to observe off abx - Appreciate ID consult 2) Psych: ETOH abuse - Completed Librium taper - Appreciate detox consult Schizoaffective disorder, bipolar disorder - Not on home medications - F/u psych consult 3) GI: Self reported bright red blood in stool - Bedside stool guiac negative for blood - F/u repeat CBC 4) Pulmonary: Asthma - Well controlled - Albuterol prn 5) F/E/N: - Neutropenic diet - Monitor electrolytes 6) Prophylaxis: - Lovenox 40mg sq daily - OOB ambulating 7) Dispo: - Discharge once cbc returns CODE STATUS: FULL CODE Visit type - Emergency Visit Emergency Visit: Yes ED Registration Date: 07/28/16 Care time: The patient presented to the Emergency Department on the above date and was hospitalized for further evaluation of their emergent condition. - New Patient This patient is new to me today: No - Critical Care Critical Care patient: No
[2016-07-30 11:04] LABS: BASOPHIL 2.1 % (0-2.0); EOSINOPHIL 5.5 % (0-4.5); MCH 31.8 pg (25.7-33.7); MCHC 33.2 g/dl (32.0-35.9); MEAN CELL VOLUME 95.7 fl (80-96); MEAN PLT VOLUME 9.2 fl (7.5-11.1); NEUTROPHILS 23.4 % (42.8-82.8); PLATELET COUNT 197 K/MM3 (134-434); RDW 13.1 % (11.9-15.9); WHITE BLOOD COUNT 2.4 K/mm3 (4.0-10.0)
[2016-07-30] MEDS: ENOXAPARIN NA (PORCINE) 40 MG/0.4 ML DISP.SYRIN SQ SCH (11:34)
--- NOTE | 2016-07-30 15:05 | CON.PSY ---
Psychiatry Consult Chief Complaint: I wantv to go to a Psych Hospital for Mental and drug abuse4 problems. i [facility], they want to take me. Patient claims to be hearing voices at this timed but looks very comfortable. Symptoms: reports: Hallucinations - Previous Psychiatric Treatment Outpatient: Less than 6 mos ago Inpatient: 2 or more prior admissions - Previous Substance Abuse Treatment Outpatient: Less than 6 mos ago - Reason for Previous Treatment Reason for Previous Treatment: Biploar Illness, Psychotic Episode - Current Medications Current Medications: Active Medications Albuterol Sulfate (Ventolin Hfa Inhaler -) 2 puff IH Q4H PRN PRN Reason: SHORT OF BREATH/WHEEZING Enoxaparin Sodium (Lovenox -) 40 mg SQ DAILY BYRON Last Admin: 07/30/16 11:34 Dose: 40 mg Risperidone (Risperdal -) 2 mg PO BID [facility] - Allergies Allergies: Allergies Allergy/AdvReac Type Severity Reaction Status Date / Time No Known Allergies Allergy Verified 07/26/16 21:07 - Current Living Status Usual Living Arrangement: Alone - Current Mental Status Evaluation Appearance: Well Groomed Attitude: Guarded - Affect Affect: Constrictive Appropriateness: Appropriate to Content - Mood Mood: Irritable - Speech/Language Expressive: Coherent Receptive: Age Appropriate Comprehension of Spoken Words - Psychomotor Activity Psychomotor Activity: Normal - Thought Process Thought Process: Intact - Thought Content Delusions: Present - Self Perception Self Perception: No Impairment - Cognition Attention: Alert Memory, Immediate Recall: Intact Memory, Remote: Intact Memory, Remote with Promptin/3 - Concentration Serial Sevens Intact: No Simple Calculations Intact: No - Abstraction Proverb Interpretation: Intact Judgement: Minimally Impaired - Insight Insight: Impaired - Impulse Control Impulse Control: Good Control - Suicidal Ideation Suicidal Ideation: No - Homicidal Ideation Homicidal Ideation: No Assessment/Plan 1) mStart Risperidal 2mg po bid 2) Call for In patient5 psych bed, [facility] or [facility] or [facility] on Monday.
[2016-07-30] MEDS ORDERED: PT OWN MED DRAWER 7, Y5N ONE (21:15)
[2016-07-30] MEDS ORDERED: risperiDONE 2 MG TABLET PO SCH (22:00)
[2016-07-30] MEDS: risperiDONE 1 MG TABLET (FP) PO SCH (22:27)
[2016-07-31 05:38] VITALS: PULSE 66
[2016-07-31] MEDS ORDERED: PT OWN MED DRAWER 7, Y5N ONE (11:11)
--- NOTE | 2016-07-31 11:14 | PN ---
Progress Note (short form) - Note Progress Note: Subjective: the patient was seen at the bedside, he was ignoring my questions. When asked if he has any thoughts of harming himself or if he is still hearing voices he stated "I don't know I just woke up". He is also reporting that he "does not feel safe" around me. Cell phone mental health technician and room phone noted to be at the bedside, when I informed the patient it will need to be removed as well, he got up out of bed and said "No, I want a new doctor". RN was able to remove cord and room phone from the patient's room. Discussed with case management who is following-up on bed availability for inpatient voluntary psych Current Medications Generic Name Dose Route Start Last Admin Trade Name Freq PRN Reason Stop Dose Admin Albuterol Sulfate 2 puff 07/28/16 14:04 Ventolin Hfa Inhaler - IH Q4H PRN SHORT OF BREATH/WHEEZING Enoxaparin Sodium 40 mg 07/29/16 10:00 07/30/16 11:34 Lovenox - SQ 40 mg DAILY BYRON Administration Risperidone 2 mg 07/30/16 22:15 07/30/16 22:27 Risperdal - PO 2 mg BID BYRON Administration Objective: Vital Signs Period Temp Pulse Resp BP Sys/Galeana Pulse Ox Last 24 Hr 97.8 F-98.6 F 66-78 16-20 102-127/39-64 Physical Exam: No exam performed, patient appeared very agitated stating "I do not want you in here", "I don't feel safe around you" CBCD WBC 2.4 K/mm3 (4.0-10.0) L 07/30/16 10:45 RBC 4.23 M/mm3 (4.00-5.60) 07/30/16 10:45 Hgb 13.5 GM/dL (11.7-16.9) 07/30/16 10:45 Hct 40.5 % (35.4-49) 07/30/16 10:45 MCV 95.7 fl (80-96) 07/30/16 10:45 MCHC 33.2 g/dl (32.0-35.9) 07/30/16 10:45 RDW 13.1 % (11.9-15.9) 07/30/16 10:45 Plt Count 197 K/MM3 (134-434) 07/30/16 10:45 MPV 9.2 fl (7.5-11.1) 07/30/16 10:45 CMP Sodium 142 mmol/L (136-145) 07/28/16 06:00 Potassium 4.1 mmol/L (3.5-5.1) 07/28/16 06:00 Chloride 106 mmol/L (98-107) 07/28/16 06:00 Carbon Dioxide 28 mmol/L (21-32) 07/28/16 06:00 Anion Gap 8 (8-16) 07/28/16 06:00 BUN 14 mg/dL (7-18) 07/28/16 06:00 Creatinine 1.0 mg/dL (0.7-1.3) D 07/28/16 06:00 Creat Clearance w eGFR > 60 (>60) 07/26/16 20:44 Random Glucose 90 mg/dL (74-106) 07/28/16 06:00 Calcium 8.4 mg/dL (8.5-10.1) L 07/28/16 06:00 Total Bilirubin 0.5 mg/dL (0.2-1.0) 07/26/16 20:44 AST 20 U/L (15-37) 07/26/16 20:44 ALT 23 U/L (12-78) 07/26/16 20:44 Alkaline Phosphatase 42 U/L (45-117) L 07/26/16 20:44 Total Protein 7.0 g/dl (6.4-8.2) 07/26/16 20:44 Albumin 4.0 g/dl (3.4-5.0) 07/26/16 20:44 Microbiology 07/27/16 11:09 Blood - Peripheral Venous Blood Culture - Preliminary NO GROWTH OBTAINED AFTER 72 HOURS, INCUBATION TO CONTINUE FOR 2 DAYS. 07/27/16 11:05 Blood - Peripheral Venous Blood Culture - Preliminary NO GROWTH OBTAINED AFTER 72 HOURS, INCUBATION TO CONTINUE FOR 2 DAYS. Assessment: this is a 40 year old male with PMHx of asthma, schizoaffective disorder, asthma, ETOH use who presented to the ED seeking detox treatment Plan: 1) Psych: Schizoaffective disorder, bipolar disorder - Patient reported to psych that he was hearing voices - He wrote on a paper that he wanted to harm himself and others - 1:1 observation - Risperdal 2mg po bid - Awaiting placement for inpatient psych - Appreciate psych consult ETOH abuse - Completed Librium taper 07/30/16 - Appreciate detox consult 2) ID: Neutropenia - Infectious vs. benign ethnic neutropenia vs. drug induced - No current infectious symptoms - UA negative - Blood cultures with NGTD - Continue to observe off abx - Appreciate ID consult 3) GI: Self reported bright red blood in stool - Bedside stool guiac negative for blood - Repeat CBC 13.5 4) Pulmonary: Asthma - Well controlled - Albuterol prn 5) F/E/N: - Neutropenic diet: foam diet tray with no knife and no fork, informed dietary - Monitor electrolytes 6) Prophylaxis: - Lovenox 40mg sq daily - OOB ambulating 7) Dispo: - Awaiting inpatient psych bed CODE STATUS: FULL CODE Visit type - Emergency Visit Emergency Visit: Yes ED Registration Date: 07/28/16 Care time: The patient presented to the Emergency Department on the above date and was hospitalized for further evaluation of their emergent condition. - New Patient This patient is new to me today: No - Critical Care Critical Care patient: No
[2016-07-31] MEDS: risperiDONE 1 MG TABLET (FP) PO SCH (11:16)
[2016-07-31] MEDS: ENOXAPARIN NA (PORCINE) 40 MG/0.4 ML DISP.SYRIN SQ SCH (11:17)
--- NOTE | 2016-07-31 12:14 | PN ---
Progress Note, Physician - Current Medication List Current Medications: Active Medications Albuterol Sulfate (Ventolin Hfa Inhaler -) 2 puff IH Q4H PRN PRN Reason: SHORT OF BREATH/WHEEZING Enoxaparin Sodium (Lovenox -) 40 mg SQ DAILY COUNTS INCLUDE 234 BEDS AT THE [facility] Last Admin: 07/31/16 11:17 Dose: Not Given Risperidone (Risperdal -) 2 mg PO BID COUNTS INCLUDE 234 BEDS AT THE [facility] Last Admin: 07/31/16 11:16 Dose: 2 mg - Objective Vital Signs: Vital Signs Temperature 97.8 F 07/31/16 05:38 Pulse Rate 66 07/31/16 05:38 Respiratory Rate 18 07/31/16 05:38 Blood Pressure 102/54 07/31/16 05:38 O2 Sat by Pulse Oximetry (%) 99 07/29/16 22:00 Labs: CBC, BMP 07/30/16 10:45
[2016-07-31 13:04] VITALS: BP 113/50
[2016-07-31 14:21] VITALS: TEMP 97.8
--- NOTE | 2016-07-31 15:42 | DS ---
Physical Examination Vital Signs: Vital Signs Temperature 97.8 F 07/31/16 14:20 Pulse Rate 66 07/31/16 10:00 Respiratory Rate 18 07/31/16 10:00 Blood Pressure 113/50 07/31/16 10:00 O2 Sat by Pulse Oximetry (%) 99 07/29/16 22:00 Labs: CBC, BMP 07/30/16 10:45 Discharge Summary Reason For Visit: SUBSTANCE ABUSE,NEUTROPENIA Current Active Problems Alcohol dependence with uncomplicated withdrawal (Acute) Cocaine dependence, uncomplicated (Acute) Neutropenia (Acute) Substance abuse (Acute) Condition: Improved - Instructions Diet, Activity, Other Instructions: You are being transferred to [facility]. Upon discharge please follow-up with your pcp within 2-3 days to have your complete blood count checked in order to evaluate your absolute neutraphil count Referrals: River Munguia MD [Staff Physician] - (Please follow-up with your primary care provider within 1 week. Please have your complete blood count checked ( blood work) at that time to assess what your absolute neutraphil count is.) Disposition: TRANSFER ACUTE CARE/OTHER HOSP - Home Medications Comprehensive Discharge Medication List: Ambulatory Orders Albuterol Sulfate Inhaler - [Ventolin HFA Inhaler -] 1 inh IH TID PRN 07/26/16 Folic Acid 1 mg PO DAILY #30 tablet 07/30/16 Thiamine HCl [Vitamin B-1] 100 mg PO DAILY #30 tablet 07/30/16 Albuterol Sulfate Inhaler - [Ventolin HFA Inhaler -] 2 puff IH Q4H PRN #0 inhaler 07/31/16 Risperidone [Risperdal -] 2 mg PO BID tablet 07/31/16
== END 2016-07-31 17:45 | disposition left against medical advice (07) | DRG 660 ==
LOC: JER 20:39 → JERBED 07-27 10:51 → J7W 07-27 18:20 → OBSVTOIN 07-28 07:46
PROVIDERS: ADMIT Internal Medicine; ATTEND Registered Nurse
PROC: HZ2ZZZZ Detoxification Services for Substance Abuse Treatment (ICD-10-PCS; principal; 2016-07-28)
DX: D70.9 Neutropenia, unspecified (principal); F25.9 Schizoaffective disorder, unspecified; F17.210 Nicotine dependence, cigarettes, uncomplicated; F31.9 Bipolar disorder, unspecified; J45.909 Unspecified asthma, uncomplicated; F10.239 Alcohol dependence with withdrawal, unspecified; F14.20 Cocaine dependence, uncomplicated; K64.8 Other hemorrhoids; K92.1 Melena
CPT/HCPCS: 36415; 80048; 80053; 80307; 81003; 85025; 87040; 93005; 93010; 99284-25; G0378; J2794